=== PATIENT | female | born 1945 | race Caucasian/White ===

== ENCOUNTER → 2019-02-13 08:00 | Outpatient (CLI) | payer MEDICARE, SELFPAY ==
[2019-02-13 09:30] LABS: Alanine Aminotransferase 19 IU/L (9-52); Albumin 4.6 g/dL (3.5-5.0); Albumin Globulin Ratio 1.6 (1.0-2.8); Alkaline Phosphatase 59 U/L (38-126); Aspartate Aminotransferase 24 IU/L (14-36); Bilirubin Total 1.2 mg/dL (0.2-1.3); Blood Urea Nitrogen 12 mg/dL (7-17); Calcium 9.7 mg/dL (8.4-10.2); Carbon Dioxide 27 mmol/L (22-32); Chloride 99 mmol/L (98-107); Cholesterol 181 mg/dL (140-199); Estimated Glomerular Filt Rate > 60.0 mL/min (>60); Globulin 2.8 g/dL (1.7-4.1); Glucose 105 mg/dL (80-110); HDL Cholesterol 47 mg/dL (40-60); HEMOLYSIS < 15 (0-50); LDL Cholesterol Calculated 88 mg/dL (<100); Potassium 3.9 mmol/L (3.4-5.1); Sodium 136 mmol/L (137-145); Total Protein 7.4 g/dL (6.3-8.2); Triglycerides 232 mg/dL (35-150)
[2019-02-13 09:35] LABS: Hemoglobin A1C% w Est Avg Glu 5.1 % (4.0-6.0)
[2019-02-13 10:42] LABS: Vitamin D 25 Hydroxy (D3) 24.2 ng/mL (30.0-100.0)
[2019-02-13 10:58] LABS: Thyroid Stimulating Hormone 4.14 uIU/mL (0.47-4.68)
== END ==
PROVIDERS: Visit Provider Internal Medicine
DX: E78.5 Hyperlipidemia, unspecified (principal); R73.9 Hyperglycemia, unspecified; I10 Essential (primary) hypertension; E55.9 Vitamin D deficiency, unspecified
CPT/HCPCS: 36415; 80053; 80061; 82306; 83036; 84443

== ENCOUNTER → 2019-02-16 11:25 | Outpatient (CLI) | payer MEDICARE, SELFPAY ==
[2019-02-16 13:00] LABS: Bilirubin Urine UA NEGATIVE (NEGATIVE); Color Urine UA YELLOW; Glucose Urine UA NEGATIVE (Negative); Ketones Urine UA TRACE (NEGATIVE); Leukocyte Esterase Urine UA 2+ (NEGATIVE); Nitrite Urine UA NEGATIVE (Negative); Occult Blood Urine UA NEGATIVE (Negative); Protein Urine UA TRACE (Negative); Specific Gravity Urine UA 1.015 (1.000-1.035); Urobilinogen Urine UA 0.2 E.U./dL (0.2)
[2019-02-16 14:35] LABS: Appearance Urine UA SL CLOUDY; Bacteria Urine Moderate (10-30); Culture Indicated Urine Cult Not Indicated; Mucus Urine 2+ (Negative); RBC Urine 0-1/HPF (0-5/HPF); Squamous Epithelial Cell Urine >30 /HPF (0-5/HPF); Transitional Epi Cells Urine 5-10/HPF (0-5/HPF); WBC Urine 5-10/HPF (0-5/HPF)
== END ==
PROVIDERS: Visit Provider Internal Medicine
DX: R73.9 Hyperglycemia, unspecified (principal); I10 Essential (primary) hypertension; E78.5 Hyperlipidemia, unspecified; E55.9 Vitamin D deficiency, unspecified
CPT/HCPCS: 81001

== ENCOUNTER → 2019-04-03 12:37 | Outpatient (CLI) | payer MEDICARE, SELFPAY ==
[2019-04-05 19:51] LABS: RPR Screen Nonreactive (Nonreactive)
== END ==
PROVIDERS: Visit Provider Physician Assistant
DX: R21 Rash and other nonspecific skin eruption (principal); D48.5 Neoplasm of uncertain behavior of skin; L57.8 Other skin changes due to chronic exposure to nonionizing radiation; X32.XXXA Exposure to sunlight, initial encounter
CPT/HCPCS: 36415; 86592

== ENCOUNTER → 2019-04-27 10:27 | Outpatient (CLI) | payer MEDICARE, SELFPAY ==
[2019-04-27 11:15] LABS: Alanine Aminotransferase 20 IU/L (<35); Albumin 4.6 g/dL (3.5-5.0); Albumin Globulin Ratio 1.9 (1.0-2.8); Alkaline Phosphatase 55 U/L (38-126); Aspartate Aminotransferase 23 IU/L (14-36); Bilirubin Total 0.7 mg/dL (0.2-1.3); Blood Urea Nitrogen 12 mg/dL (7-17); Calcium 9.8 mg/dL (8.4-10.2); Carbon Dioxide 29 mmol/L (22-32); Chloride 97 mmol/L (98-107); Estimated Glomerular Filt Rate > 60.0 mL/min (>60); Globulin 2.4 g/dL (1.7-4.1); Glucose 91 mg/dL (80-110); HEMOLYSIS < 15 (0-50); Sodium 136 mmol/L (137-145)
[2019-04-27 11:18] LABS: Add Manual Diff / Slide Review NO; Basophils Absolute Auto 0 /uL (0-100); Basophils Percent Auto 0.9 % (0-2); Eosinophils Absolute Auto 100 /uL (0-450); Hematocrit 40.7 % (36-46); Hemoglobin 14.6 g/dL (12.0-16.0); Lymphocytes Absolute Auto 1700 /uL (1100-4500); Lymphocytes Percent Auto 32.2 % (25-40); Mean Corpuscular HGB Conc 35.8 % (30-36); Mean Corpuscular Hemoglobin 30.7 PG (26-34); Mean Corpuscular Volume 85.9 fL (80-100); Monocytes Absolute Auto 500 /uL (0-900); Monocytes Percent Auto 9.4 % (3-14); Neutrophils Absolute Auto 2900 /uL (1500-7000); Neutrophils Percent Auto 55.5 % (50-75); Platelet Count 276 X10^3/uL (150-400); Red Blood Cell Count 4.74 X10^6/uL (4.0-5.2); Red Cell Distribution Width 13.4 % (11.6-14.8); White Blood Cell Count 5.2 X10^3/uL (4.5-11.0)
[2019-04-27 12:14] LABS: Hep C Virus Ab w/Reflex Quant NEGATIVE s/c (NEGATIVE)
[2019-05-01 13:19] LABS: Hepatitis B Surf Ab Qualitativ Nonreactive (Nonreactive)
[2019-05-02 12:12] LABS: Mitogen-NIL > 10.00 IU/mL; NIL 0.02 IU/mL; QuantiFERON TB NEGATIVE (Negative); TB1-NIL 0.04 IU/mL; TB2-NIL 0.04 IU/mL
== END ==
PROVIDERS: Visit Provider Physician Assistant
DX: L40.0 Psoriasis vulgaris (principal)
CPT/HCPCS: 36415; 80053; 85025; 86480; 86706; 86803

== ENCOUNTER 2019-06-29 06:36 | Day surgery (SDC) | payer OTHER, SELFPAY ==
[2019-06-29] VITALS (7 sets, daily range): BP systolic 107–153; BP diastolic 66–84; PULSE 62–90; RESP 12–16; TEMP 36.2–36.8; O2SAT 92–97; BMI 27.3
--- NOTE | 2019-06-29 | PATH_ITS ---
[facility] Accession Number: [id number] . 01 Material submitted: . cecum - CECUM BIOPSY . 02 Diagnosis: Cecum, Biopsy: Tubular adenoma in one of two fragments. One fragment of colonic mucosa with no significant diagnostic abnormality. V 06/30/2019 0957 Local . 02 Electronically signed: . Ginette Pro MD, Pathologist NPI- [id number] . 01 Gross description: . CECUM BIOPSY: Received in formalin are 2 fragment(s) of griffin, soft tissue measuring 0.1 x 0.1 x 0.1 cm to 0.4 x 0.2 x 0.2 cm submitted entirely in 1 cassette(s) [place] [place]20191911 Local . 02 Pathologist provided ICD-10: D12.0 . 02 CPT . 776449 Performed at: 01 [facility] [address], [place], [place] [id number] MD Miguel Santamaria MD Phone: [phone] Performed at: 02 [facility] [address] [place], [place] [id number] MD Ginette Pro MD Phone: [phone]
[2019-06-29] MEDS: FLEETS ENEMA 1 EACH PR (07:11)
[2019-06-29] MEDS: LACTATED RINGERS 1,000 ML 42 ML IV (07:43)
--- NOTE | 2019-06-29 07:46 | PM.HP.1 ---
History of Present Illness History of Present Illness Date Patient Seen: 06/29/19 Time Patient Seen: 07:40 Chief complaint: [id number] Narrative: The patient is woman here for a colonoscopy. She had a positive fit test. She did not tolerate simple sedation in the past. Therefore she is brought in for deep sedation with an anesthesia provider. Patient History Medical History HTN (hypertension) (Acute) Hyperlipidemia (Acute) Family & Social History Family History Mother Hypertension Father Hypertension Cancer Social History: household members none Tobacco & Substance use: Smoking Status Never smoker alcohol intake current alcohol intake frequency 0-2 drinks per day Substance Use Type does not use Meds Home Medications and Allergies Home Medications Medication Instructions Recorded Confirmed Type aspirin 81 mg tablet,delayed 81 mg PO DAILY 05/12/19 06/29/19 History release atorvastatin 80 mg tablet 80 mg PO DAILY 05/12/19 06/29/19 History glucosamine HCl 1,500 mg tablet 1,500 mg PO DAILY 05/12/19 06/29/19 History hydrochlorothiazide 25 mg tablet 25 mg PO DAILY 05/12/19 06/29/19 History lisinopril 10 mg tablet 10 mg PO DAILY 05/12/19 06/29/19 History magnesium 200 mg tablet 400 mg PO DAILY tab 05/12/19 06/29/19 History metoprolol succinate 50 mg capsule 50 mg PO DAILY 05/12/19 06/29/19 History sprinkle, ext. release 24 hr multivitamin 1 cap PO DAILY 05/12/19 06/29/19 History potassium chloride 10 mEq 10 meq PO DAILY 05/12/19 06/29/19 History capsule,extended release methotrexate sodium 2.5 mg PO QWEEK 06/29/19 06/29/19 History Allergies Allergy/AdvReac Type Severity Reaction Status Date / Time procaine [From Novocain] Allergy Unknown fainting, Verified 06/29/19 07:13 nausea Review of Systems Review of Systems ROS: Yes All systems reviewed with the patient and are negative except as otherwise documented Exam Vital Signs (past 8 hours): - 06/29/19 07:30 Temperature 98.1 F Pulse Rate 90 Respiratory Rate 14 Blood Pressure 153/84 H Pulse Oximetry 97 Oxygen Delivery Method Room Air Narrative Exam Narrative: Pleasant cooperative patient no apparent distress. Lungs are clear to auscultation. No rales or rhonchi. Heart regular rate and rhythm no murmur gallop. Abdomen is soft nontender without mass. No obvious hernias. Patient is alert and oriented x3. Assessment & Plan Assessment & Plan narrative: The patient for a screening colonoscopy. I have discussed the procedure with them. Risks of bleeding, perforation which would necessitate major operation, failure to find remove all lesions, the potential tattoo were all discussed. All questions were answered. They wished to proceed.
--- NOTE | 2019-06-29 07:47 | PM.PREOP ---
Pre-operative Note Interval Note History & Physical reviewed/Exam performed by Physician: Yes Changes to H&P: No
--- NOTE | 2019-06-29 08:34 | PM.OP.ENDO ---
Operative Date/Time/Diagnoses Date of procedure: 06/29/19 Time of procedure: 08:34 Pre-op diagnosis: Positive fit test. Last colonoscopy 15 years ago. Patient did not tolerate moderate sedation in the past and deep sedation/MAC is required Post-op diagnosis: same (Small lesion in the cecum may not actually be neoplastic.) Procedure & Clinicians Study performed: Colonoscopy with cold biopsy Same procedure as scheduled: Yes Indications: Positive fit test Surgeon: García Kincaid Procedure Notes SCOAP/Timeout: Performed Procedure in detail: The patient was placed in the left lateral decubitus position and underwent IV sedation directed by the surgeon consisting of fentanyl and Versed. Digital exam was unremarkable. The scope was inserted and advanced through the rectum into the sigmoid, descending, transverse, and ascending colon. I had to apply pressure, insert a stiffener and reposition the patient in order to get to the ascending colon and ultimately the cecum. The cecum was reached identified by the ileocecal valve and the appendiceal opening. Not far from the appendiceal opening was a small lesion which I biopsied and completely removed. The ileocecal valve was then successfully cannulated. The terminal ileum was normal in appearance. The scope was gradually brought out. No other Polyps were found. The scope ultimately was retroflexed in the rectum. The appearance was normal. The scope was removed and the patient tolerated the procedure well. The prep was acceptable. Scope withdrawal time: Over 9 minutes Sedation minutes: 0 (Deep sedation/mac/LMA provided by anesthesia) Findings: polyp (Possible to pus cecal polyp. Await pathology.) Specimen(s): other (Polyp) Complications: none Post-procedure Recommendations: Colonscopy in 5 years (No further colonoscopies if the cecal lesion is not neoplastic(adenomatous).) Follow up: as needed (By letter) Disposition: PACU
== END 2019-06-29 09:25 | disposition home or self-care (01) ==
PROVIDERS: PCP Internal Medicine; Referring Provider Specialist; Visit Provider Specialist
PROC: 0DJD8ZZ Inspection of Lower Intestinal Tract, Via Natural or Artificial Opening Endoscopic (ICD-10-PCS; CPT 45378; principal; 2019-06-29 07:45)
DX: D12.0 Benign neoplasm of cecum (principal)
CPT/HCPCS: 45380; J2405; J2704; J3010

== ENCOUNTER → 2020-01-16 10:31 | Outpatient (CLI) | payer OTHER, SELFPAY ==
--- NOTE | 2020-01-16 10:51 | DI.MG.S_ITS ---
Patient Name: ELIZABETH DOUGLAS date: 1945 Sex: F Attending Physician: Carter Indications: Date: 01/16/2020 10:49 At the request of: CALLY REYNOLDS Procedure: MM screening mammo BI BILATERAL DIGITAL SCREENING MAMMOGRAM 3D/2D WITH CAD: 01/16/2020 CLINICAL: Routine screening. Comparison is made to exams dated: 11/01/2017 mammogram, 10/26/2015 mammogram, and 10/25/2014 [facility]ogram - [facility]. There are scattered fibroglandular elements in both breasts. Current study was also evaluated with a Computer Aided Detection (CAD) system. No significant masses, calcifications, or other findings are seen in either breast. There has been no significant interval change. IMPRESSION: NEGATIVE There is no mammographic evidence of malignancy. A 1 year screening mammogram is recommended. This exam was interpreted at Station ID: [id number]. NOTE: For mammograms, a report in lay terms will be sent to the patient. Approximately 15% of breast malignancies will not be visualized mammographically. In the management of a palpable breast mass, a negative mammogram must not discourage biopsy of a clinically suspicious lesion. Electronically Signed By: Ji modi/hernesto:01/18/2020 08:48:44 letter sent: Normal Exam ACR BI-RADS Category 1: Negative 3341F
== END ==
PROVIDERS: PCP Internal Medicine; Referring Provider Internal Medicine; Visit Provider Internal Medicine
DX: Z12.31 Encounter for screening mammogram for malignant neoplasm of breast (principal)
CPT/HCPCS: 77063; 77067

== ENCOUNTER → 2020-04-13 11:39 | Outpatient (CLI) | payer OTHER, SELFPAY ==
--- NOTE | 2020-04-13 11:43 | DI.RAD.S_ITS ---
PROCEDURE: XR HAND RT MIN 3V INDICATIONS: Other psoriatic arthropathy TECHNIQUE: 3 views of the hand(s) acquired. COMPARISON: None. FINDINGS: Bones: No fractures or dislocations. Carpal bones are normally aligned. There is mild diffuse interphalangeal joint space narrowing. No bony erosions or periarticular osteopenia. Moderate to severe osteoarthritis is present at the 1st interphalangeal joint and the 2nd DIP and PIP joints. Soft tissues: No suspicious soft tissue calcifications. IMPRESSION: Osteoarthritis. No findings to suggest erosive arthritis. Dictated by: Aruna Degroot M.D. on 04/13/2020 at 14:19 Approved by: Aruna Degroot M.D. on 04/13/2020 at 14:20
--- NOTE | 2020-04-13 11:43 | DI.RAD.S_ITS ---
PROCEDURE: XR CERVICAL SPINE 2V OR 3V INDICATIONS: Other psoriatic arthropathy TECHNIQUE: 3 view(s) of the cervical spine were acquired. COMPARISON: None. FINDINGS: Bones: No fractures or dislocations to the C5-6 level. The lateral masses of C1 appear intact on the odontoid view. No suspicious bony lesions. Moderate degenerative change includes intervertebral disc space narrowing and osteophytosis. Soft tissues: No prevertebral soft tissue swelling. IMPRESSION: Degenerative change. No suspicious bony lesions or ankylosis to suggest erosive arthritis. Dictated by: Aruna Degroot M.D. on 04/13/2020 at 14:11 Approved by: Aruna Degroot M.D. on 04/13/2020 at 14:19
--- NOTE | 2020-04-13 11:43 | DI.RAD.S_ITS ---
PROCEDURE: XR HAND LT MIN 3V INDICATIONS: Other psoriatic arthropathy TECHNIQUE: 3 views of the hand(s) acquired. COMPARISON: None. FINDINGS: Bones: No acute fracture or dislocation. There is mild interphalangeal joint space narrowing with osteophytosis at the left 2nd digit. No suspicious bony lesions, bony erosions, or periarticular osteopenia. Soft tissues: No suspicious soft tissue calcifications. IMPRESSION: Mild osteoarthritis. No findings to suggest erosive arthritis. Dictated by: Aruna Degroot M.D. on 04/13/2020 at 14:10 Approved by: Aruna Degroot M.D. on 04/13/2020 at 14:10
--- NOTE | 2020-04-13 11:43 | DI.RAD.S_ITS ---
PROCEDURE: XR SACROILIAC JOINT MIN 3V INDICATIONS: Other psoriatic arthropathy TECHNIQUE: 3 views of the sacroiliac joints were acquired. COMPARISON: None. FINDINGS: Bones: No bony erosions or ankylosis. No suspicious bony lesions. No fractures. Soft tissues: Overlying bowel gas pattern is normal. No suspicious soft tissue densities. IMPRESSION: No bony erosions or ankylosis. Dictated by: Aruna Degroot M.D. on 04/13/2020 at 14:20 Approved by: Aruna Degroot M.D. on 04/13/2020 at 14:20
== END ==
PROVIDERS: PCP Internal Medicine; Referring Provider Internal Medicine Rheumatology; Visit Provider Internal Medicine Rheumatology
DX: L40.59 Other psoriatic arthropathy (principal); M54.9 Dorsalgia, unspecified; M47.812 Spondylosis without myelopathy or radiculopathy, cervical region; M19.042 Primary osteoarthritis, left hand; M19.041 Primary osteoarthritis, right hand
CPT/HCPCS: 72040; 72202; 73130

== ENCOUNTER → 2021-02-18 10:18 | Outpatient (CLI) | payer OTHER, SELFPAY ==
--- NOTE | 2021-02-18 | DI.MG.S_ITS ---
BILATERAL DIGITAL SCREENING MAMMOGRAM 3D/2D WITH CAD: 02/18/2021 CLINICAL: Routine screening. Comparison is made to exams dated: 01/16/2020 mammogram - [facility], 11/01/2017 mammogram, 10/26/2015 mammogram, and 10/22/2014 mammogram - [facility]. There are scattered fibroglandular elements in both breasts. Current study was also evaluated with a Computer Aided Detection (CAD) system. No significant masses, calcifications, or other findings are seen in either breast. There has been no significant interval change. IMPRESSION: NEGATIVE There is no mammographic evidence of malignancy. A 1 year screening mammogram is recommended. This exam was interpreted at Station ID: [id number]. NOTE: For mammograms, a report in lay terms will be sent to the patient. Approximately 15% of breast malignancies will not be visualized mammographically. In the management of a palpable breast mass, a negative mammogram must not discourage biopsy of a clinically suspicious lesion. Electronically Signed By: Tu urbina/hernesto:02/20/2021 08:13:47 letter sent: Normal Exam ACR BI-RADS Category 1: Negative 3341F
== END ==
PROVIDERS: PCP Internal Medicine; Referring Provider Internal Medicine; Visit Provider Internal Medicine
DX: Z12.31 Encounter for screening mammogram for malignant neoplasm of breast (principal)
CPT/HCPCS: 77063; 77067

== ENCOUNTER → 2022-02-24 14:08 | Outpatient (CLI) | payer OTHER, SELFPAY ==
--- NOTE | 2022-02-24 14:09 | DI.MG.S_ITS ---
BILATERAL DIGITAL SCREENING MAMMOGRAM 3D/2D WITH CAD: 02/24/2022 CLINICAL: Routine screening. Comparison is made to exams dated: 02/18/2021 mammogram, 01/16/2020 mammogram - [facility], 11/01/2017 mammogram, 10/26/2015 mammogram, and 10/25/2014 mammogram - [facility]. There are scattered areas of fibroglandular density in both breasts (category b / 25%-50% glandular tissue). Current study was also evaluated with a Computer Aided Detection (CAD) system. No significant masses, calcifications, or other findings are seen in either breast. There has been no significant interval change. IMPRESSION: NEGATIVE There is no mammographic evidence of malignancy. A 1 year screening mammogram is recommended. Based on the Tyrer Cuzick model (a risk assessment model) the patient's lifetime risk is 2.9% and her 10 year risk is 2.6%. According to the ACR, ACS, and NCCN guidelines, an annual breast MRI exam along with mammogram is recommended if the patient's lifetime risk is 20% or greater. This exam was interpreted at Station ID: [id number]. NOTE: For mammograms, a report in lay terms will be sent to the patient. Approximately 15% of breast malignancies will not be visualized mammographically. In the management of a palpable breast mass, a negative mammogram must not discourage biopsy of a clinically suspicious lesion. Electronically Signed By: Ji modi/hernesto:02/24/2022 14:32:18 letter sent: Normal Exam ACR BI-RADS Category 1: Negative 3341F
== END ==
PROVIDERS: PCP Student in an Organized Health Care Education/Training Program; Referring Provider Student in an Organized Health Care Education/Training Program; Visit Provider Student in an Organized Health Care Education/Training Program
DX: Z12.31 Encounter for screening mammogram for malignant neoplasm of breast (principal)
CPT/HCPCS: 77063; 77067

== ENCOUNTER → 2023-02-25 14:38 | Outpatient (CLI) | payer OTHER, SELFPAY ==
--- NOTE | 2023-02-25 | DI.MG.S_ITS ---
BILATERAL DIGITAL SCREENING MAMMOGRAM 3D/2D WITH CAD: 02/25/2023 CLINICAL: Routine screening. Comparison is made to exams dated: 02/24/2022 mammogram, 02/18/2021 mammogram, and 01/16/2020 mammogram - [facility]. There are scattered areas of fibroglandular density in both breasts (category b / 25%-50% glandular tissue). Current study was also evaluated with a Computer Aided Detection (CAD) system. No significant masses, calcifications, or other findings are seen in either breast. There has been no significant interval change. IMPRESSION: NEGATIVE There is no mammographic evidence of malignancy. A 1 year screening mammogram is recommended. Based on the Tyrer Cuzick model (a risk assessment model) the patient's lifetime risk is 2.7% and her 10 year risk is 2.7%. According to the ACR, ACS, and NCCN guidelines, an annual breast MRI exam along with mammogram is recommended if the patient's lifetime risk is 20% or greater. This exam was interpreted at Station ID: [id number]. NOTE: For mammograms, a report in lay terms will be sent to the patient. Approximately 15% of breast malignancies will not be visualized mammographically. In the management of a palpable breast mass, a negative mammogram must not discourage biopsy of a clinically suspicious lesion. Electronically Signed By: Joshua may/hernesto:02/26/2023 16:33:55 letter sent: Normal Exam ACR BI-RADS Category 1: Negative 3341F
== END ==
PROVIDERS: PCP Student in an Organized Health Care Education/Training Program; Referring Provider Student in an Organized Health Care Education/Training Program; Visit Provider Student in an Organized Health Care Education/Training Program
DX: Z12.31 Encounter for screening mammogram for malignant neoplasm of breast (principal)
CPT/HCPCS: 77063; 77067

== ENCOUNTER → 2024-02-28 10:47 | Outpatient (CLI) | payer OTHER, SELFPAY ==
--- NOTE | 2024-02-28 10:48 | DI.MG.S_ITS ---
BILATERAL DIGITAL SCREENING MAMMOGRAM 3D/2D WITH CAD: 02/28/2024 CLINICAL: Routine screening. Comparison is made to exams dated: 02/25/2023 mammogram, 02/24/2022 mammogram, 02/18/2021 mammogram, and 01/16/2020 mammogram - [facility]. There are scattered areas of fibroglandular density (category b / 25%-50% glandular tissue). Current study was also evaluated with a Computer Aided Detection (CAD) system. No significant masses, calcifications, or other findings are seen in either breast. There has been no significant interval change. IMPRESSION: NEGATIVE There is no mammographic evidence of malignancy. A 1 year screening mammogram is recommended. Based on the Tyrer Cuzick model (a risk assessment model) the patient's lifetime risk is 2.4% and her 10 year risk is 0.0%. According to the ACR, ACS, and NCCN guidelines, an annual breast MRI exam along with mammogram is recommended if the patient's lifetime risk is 20% or greater. This exam was interpreted at Station ID: [id number]. NOTE: For mammograms, a report in lay terms will be sent to the patient. Approximately 15% of breast malignancies will not be visualized mammographically. In the management of a palpable breast mass, a negative mammogram must not discourage biopsy of a clinically suspicious lesion. Electronically Signed By: Tu urbina/hernesto:02/28/2024 17:06:02 letter sent: Normal Exam ACR BI-RADS Category 1: Negative
== END ==
PROVIDERS: Family Provider Student in an Organized Health Care Education/Training Program; PCP Student in an Organized Health Care Education/Training Program; Referring Provider Student in an Organized Health Care Education/Training Program; Visit Provider Student in an Organized Health Care Education/Training Program
DX: Z12.31 Encounter for screening mammogram for malignant neoplasm of breast (principal)
CPT/HCPCS: 77063; 77067

== ENCOUNTER → 2025-03-01 12:39 | Outpatient (CLI) | payer MEDICARE, SELFPAY ==
--- NOTE | 2025-03-01 12:41 | DI.MG.S_ITS ---
MM screening mammo BI: 03/01/2025. BI-RADS: 1 CLINICAL: 79-year old female for bilateral screening mammogram. Tyrer-Cuzick lifetime risk of 1.7%. No personal or first-degree family history of breast cancer. The patient is status-post reduction mammoplasty. PRIOR EXAMS 02/28/2024, 02/25/2023, 02/24/2022, 02/18/2021, MAMMOGRAPHY TECHNIQUE: 2D and 3D (tomosynthesis) digital mammographic views obtained, with additional images as needed for full coverage. Current study was also evaluated with a Computer Aided Detection (CAD) system. DENSITY B. There are scattered areas of fibroglandular density. MAMMOGRAPHY FINDINGS Bilateral: No suspicious mass, asymmetry, microcalcification, or other abnormality seen. IMPRESSION: * No evidence of malignancy. RECOMMENDATIONS Bilateral * Annual screening mammography. OVERALL ASSESSMENT CATEGORY BI-RADS-1: Negative. The [employer] recommends annual screening mammography beginning at age 40 for women with average risk of breast cancer. ELECTRONICALLY SIGNED: Gabby Snyder M.D. on 03/02/2025 at 04:30:42 PM PT Interpreting Station ID: [id number]
== END ==
LOC: MAMMO 12:40
PROVIDERS: Family Provider Student in an Organized Health Care Education/Training Program; PCP Student in an Organized Health Care Education/Training Program; Referring Provider Student in an Organized Health Care Education/Training Program; Visit Provider Student in an Organized Health Care Education/Training Program
DX: Z12.31 Encounter for screening mammogram for malignant neoplasm of breast (principal)
CPT/HCPCS: 77063; 77067